=== PATIENT | female | born 1975 | race Caucasian/White ===

== ENCOUNTER 2021-06-28 08:28 | Outpatient (CLI) | payer MEDICARE, MEDICAID | END 2021-06-28 08:29 | disposition home or self-care (01) | LOC: CSHWCC 08:28 | PROVIDERS: ATTEND Nurse Practitioner Family | DX: L89.109 Pressure ulcer of unspecified part of back, unspecified stage (principal); L89.890 Pressure ulcer of other site, unstageable; L89.899 Pressure ulcer of other site, unspecified stage; E11.628 Type 2 diabetes mellitus with other skin complications; F32.1 Major depressive disorder, single episode, moderate; G40.909 Epilepsy, unspecified, not intractable, without status epilepticus; J96.01 Acute respiratory failure with hypoxia; K21.9 Gastro-esophageal reflux disease without esophagitis; L03.90 Cellulitis, unspecified ==

== ENCOUNTER 2021-07-10 14:56 | Inpatient (IN) | payer MEDICARE, MEDICAID ==
[2021-07-10 16:46] LABS: #Eosinphils 0.2 10x3/uL (0.0-0.5); #Monocytes 0.7 10x3/uL (0.0-1.1); #Neutrophils 4.6 10x3/uL (1.5-8.4); %Basophils 0.2 % (0.0-2.0); %Eosinophils 1.7 % (0.0-6.0); %Lymphocytes 40.5 % (18.0-47.0); %Neutrophils 50.1 % (40.0-75.0); Hemoglobin 11.5 g/dL (12.0-15.5); Mean Corpuscular HGB CONC 31.1 g/dL (32.0-36.0); Mean Corpuscular Hemoglobin 28.9 pg (27.0-33.0); Mean Platelet Volume 10.1 fl (7.4-10.4); Platelet Count 307 10x3/uL (150-450); RBC Distribution Width 13.9 % (11.5-14.5); Red Blood Cell (RBC) Count 3.98 10x6/uL (3.90-5.03); White Blood Cell (WBC) Count 9.3 10x3/uL (3.5-10.5)
[2021-07-10 16:49] LABS: ALT (SGPT) 19 U/L (8-55); AST (SGOT) 16 U/L (5-34); Albumin 3.8 g/dL (3.5-5.0); Alkaline Phosphatase 77 U/L (40-110); Anion Gap 12 mmol/L (10-20); BUN (Urea Nitrogen) 13 mg/dL (7.0-18.7); Bilirubin, Total 0.1 mg/dL (0.2-1.2); Calc. Creatinine Clearance 0 mL/min (70-130); Carbon Dioxide 24 mmol/L (22-29); Chloride 105 mmol/L (98-107); Globulin 3.7 g/dL (2.4-3.5); Glucose 101 mg/dL (70-105); Protein, Total 7.5 g/dL (6.0-8.3); Sodium 137 mmol/L (136-145)
[2021-07-10] MEDS ORDERED: Dextrose 50% Abboject 50 ML SYRINGE SLOW IVP PRN (18:44)
[2021-07-10] MEDS ORDERED: Dextrose 5% in Water 1,000 ML IV PRN (18:44)
[2021-07-10] MEDS ORDERED: HumaLOG 300 UNITS/3 ML VIAL SC PRN (18:44)
[2021-07-10 20:55] VITALS: BMI 44.5
[2021-07-10] MEDS ORDERED: Citalopram 20 MG TAB PO SCH (21:00)
[2021-07-10] MEDS ORDERED: PHENobarbital 32.4 MG TAB PO SCH (21:00)
[2021-07-10] MEDS ORDERED: clonazePAM 0.5 MG TAB PO SCH (21:00)
[2021-07-10] MEDS: Topiramate 100 MG TAB PO SCH (21:49)
[2021-07-10] MEDS: Baclofen 10 MG TAB PO SCH (21:49)
[2021-07-10] MEDS: Aripiprazole 10 MG TAB PO SCH (21:50)
[2021-07-10] MEDS: Lacosamide 50 mg Tablet PO SCH (21:50)
[2021-07-10] MEDS: Lantus 1000 UNITS/10 ML VIAL SC SCH (21:51)
[2021-07-11] MEDS ORDERED: Ketorolac Tromethamine 30 MG/ML VIAL IVP SCH (05:30)
[2021-07-11] MEDS: Vancomycin HCl 750 MG in Sodium Chloride 0.9% 250 ML 250 ML IVPB SCH ×2 (06:06→18:44)
[2021-07-11] MEDS ORDERED: Ventolin HFA Inhaler 60 PUFF INHALER INH PRN (07:59)
[2021-07-11] MEDS ORDERED: Cholecalciferol 1,000 UNITS (25 MCG) TAB PO SCH (09:00)
[2021-07-11] MEDS ORDERED: Enoxaparin Sodium 40 MG/0.4 ML SYRINGE SC SCH (09:00)
[2021-07-11] MEDS ORDERED: Alogliptin 25 MG TAB PO SCH (09:00)
[2021-07-11] MEDS: Baclofen 10 MG TAB PO SCH ×2 (10:40→16:28)
[2021-07-11] MEDS: Lantus 1000 UNITS/10 ML VIAL SC SCH (10:40)
[2021-07-11] MEDS: Aripiprazole 10 MG TAB PO SCH (10:40)
[2021-07-11] MEDS: Lacosamide 50 mg Tablet PO SCH (10:40)
[2021-07-11] MEDS: Topiramate 100 MG TAB PO SCH (10:41)
[2021-07-11 16:01] VITALS: BP 86/53; TEMP 98.2
[2021-07-11 16:42] LABS: SARS-CoV-2 PCR by NAA Not Detected (NotDetected)
[2021-07-11] MEDS ORDERED: Loratadine 10 MG TAB PO SCH (21:00)
[2021-07-12] MEDS ORDERED: glipiZIDE 5 MG TAB PO SCH (07:30)
== END 2021-07-11 19:53 | disposition home or self-care (01) | DRG 593 ==
LOC: CSHERS 14:56 → CSHTELE 20:06
PROVIDERS: ADMIT Family Medicine; ATTEND Family Medicine
DX: L89.159 Pressure ulcer of sacral region, unspecified stage (principal); Z68.41 Body mass index [BMI] 40.0-44.9, adult; G40.909 Epilepsy, unspecified, not intractable, without status epilepticus; F88 Other disorders of psychological development; E11.9 Type 2 diabetes mellitus without complications; Z20.822 Contact with and (suspected) exposure to COVID-19; E66.01 Morbid (severe) obesity due to excess calories; Z88.5 Allergy status to narcotic agent; Z88.8 Allergy status to other drugs, medicaments and biological substances; Z79.4 Long term (current) use of insulin; Z79.899 Other long term (current) drug therapy; Z90.710 Acquired absence of both cervix and uterus
CPT/HCPCS: 36415; 36416; 74177; 80053; 85025; 87070; 87077; 87186; 87205; 96365; J1650; J1815; J1885; J3370; J7050; U0003; U0005

== ENCOUNTER 2021-08-04 09:38 | Emergency (ER) | payer MEDICARE, MEDICAID ==
[2021-08-04 10:57] LABS: #Eosinphils 0.2 10x3/uL (0.0-0.5); #Monocytes 0.4 10x3/uL (0.0-1.1); #Neutrophils 4.5 10x3/uL (1.5-8.4); %Basophils 0.3 % (0.0-2.0); %Eosinophils 2.1 % (0.0-6.0); %Lymphocytes 32.2 % (18.0-47.0); %Monocytes 5.3 % (0.0-10.0); %Neutrophils 59.8 % (40.0-75.0); Hemoglobin 12.2 g/dL (12.0-15.5); Mean Corpuscular HGB CONC 31.8 g/dL (32.0-36.0); Mean Corpuscular Volume 91.2 fl (81.6-98.3); Mean Platelet Volume 11.7 fl (7.4-10.4); Platelet Count 250 10x3/uL (150-450); RBC Distribution Width 14.5 % (11.5-14.5); Red Blood Cell (RBC) Count 4.21 10x6/uL (3.90-5.03); White Blood Cell (WBC) Count 7.5 10x3/uL (3.5-10.5)
[2021-08-04 11:10] LABS: Actual Bicarbonate (HCO3v) 22 mEq/L (22-28); Base Excess -4.2 mEq/L (-2.0 to +3.0); Calcium, Ionized (venous) 1.18 mmol/L (1.16-1.32); Chloride (VBG) 102 mmol/L (98-106); Hemoglobin (Hb) 12.8 g/dL (11.7-16.0); Puncture Site Other Site; Sodium 137.2 mmol/L (133-146); pH (venous) 7.32 (7.32-7.43)
[2021-08-04 11:17] LABS: ALT (SGPT) 18 U/L (8-55); AST (SGOT) 16 U/L (5-34); Alkaline Phosphatase 81 U/L (40-110); Anion Gap 15 mmol/L (10-20); BUN (Urea Nitrogen) 13 mg/dL (7.0-18.7); Bilirubin, Total 0.1 mg/dL (0.2-1.2); Calc. Creatinine Clearance 0 mL/min (70-130); Calcium 8.8 mg/dL (7.8-10.44); Carbon Dioxide 20 mmol/L (22-29); Chloride 104 mmol/L (98-107); Globulin 3.4 g/dL (2.4-3.5); Glucose 535 mg/dL (70-105); Lipase 32 U/L (8-78); Potassium 4.6 mmol/L (3.5-5.1); Protein, Total 7.4 g/dL (6.0-8.3); Sodium 134 mmol/L (136-145)
[2021-08-04] MEDS ORDERED: Insulin Regular 300 UNITS/3 ML VIAL ONE (12:21)
[2021-08-04 12:47] LABS: Bilirubin Neg (Negative); Blood, Urine Negative (Negative); Glucose, Urine (Dipstick) >=1000 mg/dL (Negative); Ketone, Urine Negative (Negative); Leukocyte 25 (Negative); Nitrite Negative (Negative); Protein, Urine (Dipstick) Negative (Neg-Trace); Urobilinogen Normal mg/dL (Less than 2); pH, Urine 6.5 (5.0-9.0)
[2021-08-04 12:55] LABS: Clarity Clear (Clear)
[2021-08-04 12:56] LABS: Bacteria/HPF 2+ HPF (None Seen); RBC/HPF None Seen HPF (0-3); Squamous Epithelial 0-3 HPF (0-3); WBC/HPF 0-3 HPF (0-3)
== END 2021-08-04 13:23 | disposition home or self-care (01) ==
LOC: CSHERS 09:38
DX: E11.65 Type 2 diabetes mellitus with hyperglycemia (principal); E78.5 Hyperlipidemia, unspecified; K21.9 Gastro-esophageal reflux disease without esophagitis; Z79.899 Other long term (current) drug therapy
CPT/HCPCS: 36416; 71045; 80053; 81003; 81015; 82010; 82805; 83690; 84484; 85025; 96374; J1815

== ENCOUNTER 2024-04-19 11:38 | Outpatient (CLI) | payer MEDICARE, MEDICAID | END 2024-04-19 11:39 | disposition home or self-care (01) | LOC: CSHRAD 11:38 | PROVIDERS: ATTEND Family Medicine | DX: I46.9 Cardiac arrest, cause unspecified (principal); E11.628 Type 2 diabetes mellitus with other skin complications; E55.9 Vitamin D deficiency, unspecified | CPT/HCPCS: 36415; 71046; 80053; 80061; 82306; 83036; 84443; 85025 ==

== ENCOUNTER 2024-07-16 08:57 | Emergency (ER) | payer MEDICARE, MEDICAID ==
[2024-07-16 09:53] LABS: #Basophils 0.02 10x3/uL (0.0-0.2); #Eosinophils 0.04 10x3/uL (0.0-0.5); #Monocytes 0.44 10x3/uL (0.0-1.1); #Neutrophils 8.43 10x3/uL (1.5-8.4); %Basophils 0.2 % (0.0-2.0); %Eosinophils 0.4 % (0.0-6.0); %Monocytes 4.4 % (0.0-10.0); %Neutrophils 84.6 % (40.0-75.0); ALT (SGPT) 12 U/L (8-55); AST (SGOT) 16 U/L (5-34); Albumin 3.1 g/dL (3.5-5.0); Alkaline Phosphatase 101 U/L (40-110); Anion Gap 13 mmol/L (10-20); BUN (Urea Nitrogen) 15 mg/dL (7.0-18.7); Bilirubin, Total Less than 0.2 mg/dL (0.2-1.2); Calc. Creatinine Clearance 0 mL/min (70-130); Calcium 8.4 mg/dL (7.8-10.44); Carbon Dioxide 20 mmol/L (22-29); Chloride 111 mmol/L (98-107); Estimated GFR 98; Globulin 3.6 g/dL (2.4-3.5); Glucose 89 mg/dL (70-105); Hematocrit 38.6 % (34.9-44.5); Hemoglobin 12.1 g/dL (12.0-15.5); Mean Corpuscular HGB CONC 31.3 g/dL (32.0-36.0); Mean Corpuscular Hemoglobin 27.9 pg (27.0-33.0); Mean Corpuscular Volume 89.1 fL (81.6-98.3); Mean Platelet Volume 10.5 fL (7.4-10.4); Platelet Count 247 10x3/uL (150-450); Potassium 3.8 mmol/L (3.5-5.1); Protein, Total 6.7 g/dL (6.0-8.3); RBC Distribution Width 15.1 % (11.5-14.5); Red Blood Cell (RBC) Count 4.33 10x6/uL (3.90-5.03); Sodium 140 mmol/L (136-145)
[2024-07-16 10:34] LABS: Bilirubin Neg (Negative); Blood, Urine Negative (Negative); Clarity Clear (Clear); Glucose, Urine (Dipstick) Normal (Negative); Ketone, Urine Negative (Negative); Leukocyte Negative (Negative); Nitrite Negative (Negative); Protein, Urine (Dipstick) Negative (Neg-Trace); Specific Gravity, Urine 1.005 (1.005-1.030); Urobilinogen Normal mg/dL (Less than 2)
[2024-07-16 10:43] LABS: Bacteria/HPF Rare-Few HPF (None Seen); CAUTI Indications for Culture Dysuria,urgency,freq; RBC/HPF None Seen HPF (0-3); Squamous Epithelial 0-3 HPF (0-3); Urine Culture Reflex No No; WBC/HPF None Seen HPF (0-3)
== END 2024-07-16 11:29 | disposition home or self-care (01) ==
LOC: CSHERS 08:57
DX: G40.909 Epilepsy, unspecified, not intractable, without status epilepticus (principal); E11.649 Type 2 diabetes mellitus with hypoglycemia without coma; I10 Essential (primary) hypertension; K21.9 Gastro-esophageal reflux disease without esophagitis; E78.5 Hyperlipidemia, unspecified; Z79.899 Other long term (current) drug therapy
CPT/HCPCS: 36415; 80053; 81001; 85025; 93005; 99285